=== PATIENT | male | born 1975 | race Caucasian/White ===

== ENCOUNTER 2023-05-31 06:16 | Emergency (ER) | payer OTHER ==
[~2023-05-31] VITALS: Ht 185.4 cm; Wt 102.0 kg
--- NOTE | 2023-05-31 07:01 | ED Abdominal Pain ---
General Chief Complaint: Abdominal/GI Problems Stated Complaint: CONSTIPATED X 7 DAYS Source of Information: Patient Exam Limitations: No Limitations (FRAN ROSSI) History of Present Illness Date Seen by Provider: May 31, 2023 Time Seen by Provider: 06:56 Initial Comments Anant presents with a 7 day history of constipation. He believes his constipation spells are due to all the medications that he is on for his blood pressure. He says that he has had two episodes of constipation of this time frame before and had to receive an enema for him to pass stool. He has tried M iralax to help with constipation but has only caused diarrhea and has not helped his discomfort at this time. He says most of his discomfort is located on his left side at this time and does not radiate. He rates the discomfort as a 5/10. He said that he feels that he is very dehyrated as well. He denies any nausea or vomiting, fever, night sweats, chills. Timing/Duration: 1 Week Severity/Quality: Mild Location: LUQ, LLQ Radiation: No Radiation Activities at Onset: None (FRAN ROSSI) Allergies and Home Medications Allergies Coded Allergies: No Known Drug Allergies (Unverified , 05/31/23) Patient Home Medication List Home Medication List Reviewed: Yes (MATTHEW THOMAS MD) Review of Systems Review of Systems Constitutional: No chills, No diaphoresis, No weakness EENTM: No Symptoms Reported Respiratory: Denies Cough, Denies Shortness of Air Cardiovascular: Denies Chest Pain, Denies Lightheadedness, Denies Palpitations Gastrointestinal: Abdominal Pain, Constipated, Diarrhea; Denies Vomiting Musculoskeletal: no symptoms reported (FRAN ROSSI) Past Nnlgalb-Ofxawa-Bljahn Hx Patient Social History Tobacco Use?: No Use of E-Cig and/or Vaping dev: No Substance use?: Yes Substance type: Marijuana Alcohol Use?: Yes Alcohol Frequency: Once in a while (FRAN ROSSI) Past Medical History Surgeries: Yes Neurological, Renal Respiratory: No Cardiac: Yes Hypertension Neurological: Yes Stroke Genitourinary: Yes Renal Failure Cancer: Yes Kidney (FRAN ROSSI) Physical Exam Vital Signs Vital Signs - First Documented 05/31/23 05/31/23 06:43 10:50 Temp 36.9 Pulse 89 Resp 16 B/P (MAP) 155/106 (122) Pulse Ox 98 (MATTHEW THOMAS MD) Vital Signs Capillary Refill : (FRAN ROSSI) Height/Weight/BMI Height: '" Weight: lbs. oz. kg; BMI Method: General Appearance: WD/WN, no apparent distress Respiratory: lungs clear, normal breath sounds, no respiratory distress, no accessory muscle use Cardiovascular: regular rate, rhythm, no gallop, no murmur Gastrointestinal: non tender, soft, abnormal bowel sounds (hyperactive bowel sounds to left sided abdomen) Extremities: no calf tenderness Back: no CVA tenderness Neurologic/Psychiatric: alert, normal mood/affect, oriented x 3 (FRAN ROSSI) Progress/Results/Core Measures Results/Orders Lab Results Laboratory Tests Test 05/31/23 09:02 Range/Units Sodium Level 136 135-145 MMOL/L Potassium Level 4.2 3.6-5.0 MMOL/L Chloride Level 106 98-107 MMOL/L Carbon Dioxide Level 20 L 21-32 MMOL/L Anion Gap 10 5-14 MMOL/L Blood Urea Nitrogen 36 H 7-18 MG/DL Creatinine 2.14 H 0.60-1.30 MG/DL Estimat Glomerular Filtration Rate 37 BUN/Creatinine Ratio 17 Glucose Level 103 70-105 MG/DL Calcium Level 8.7 8.5-10.1 MG/DL Magnesium Level 2.1 1.6-2.4 MG/DL (MATTHEW THOMAS MD) My Orders Orders - MATTHEW THOMAS MD Abdomen, Flat & Upright/Decub (05/31/23 08:00) Ed Iv/Invasive Line Start (05/31/23 08:00) Lactated Ringers 1,000 Ml (Lactated Ring (05/31/23 08:00) Basic Metabolic Panel (05/31/23 08:00) Magnesium (05/31/23 08:00) (MATTHEW THOMAS MD) Medications Given in ED (MATTHEW THOMAS MD) Vital Signs/I&O 05/31/23 05/31/23 06:43 10:50 Temp 36.9 36.9 Pulse 89 90 Resp 16 16 B/P (MAP) 155/106 (122) 160/99 Pulse Ox 98 (MATTHEW THOMAS MD) Progress Progress Note : Time: 07:02 Progress Note Patient is currently in 5/10 discomfort at this time. He says he has had a history of 7 days of constipation. He has had two prior episodes like this before but both were back home in [place]. He is currently down here for a hunting trip at this time. He says that he had enema's prior that helped him pass stool. He is currently having some small amounts of diarrhea after taking Miralax. He has mild tenderness to the left side of his abdomen as well as hyperactive bowel sounds to left side of abdomen. Cardio exam has normal rate and rhythm with no murmur, lungs are clear. No other pains or complaints at this time. Plan is to give (FRAN ROSSI) Progress Note : Progress Note Patient was interviewed and examined by me along with PA student. He was found to have a relatively benign abdomen on exam with no distention or significant tenderness. He reports feeling very constipated and not passing significant stool for many days despite taking MiraLAX. He normally takes MiraLAX daily but took additional MiraLAX to help with this problem. He has had some small quantity of liquidy stool but that did not resolve his feeling of constipation. He takes numerous medications that can cause bowel motility problems. His medication list was reviewed. KUB and upright x-ray was obtained to evaluate stool burden. Based on my interpretation of this x-ray, there appeared to be some significant liquidy stool in the proximal bowel and no significant solid stool accumulation in the distal colon. For this reason I recommended adding some stimulant laxatives rather than more MiraLAX or an enema. Patient was agr eeable to this plan. Basic labs were checked to evaluate for hydration status and electrolytes as patient felt dehydrated. Electrolytes were unremarkable including sodium, potassium, and magnesium. BUN was 36 and creatinine was 2.14. Patient reports this is his baseline. See discharge instructions for further discussion. The radiologist report was reviewed as below. (MATTHEW THOMAS MD) Diagnostic Imaging Diagonstic Imaging: Xray Plain Films/CT/US/NM/MRI: abdomen, pelvis Comments NAME: ANANT ROBLES MED REC#: [id number] PT STATUS: DEP ER : 1975 PHYSICIAN: MATTHEW THOMAS MD ADMIT DATE: 05/31/23/ER Signed Date of Exam:05/31/23 ABDOMEN, FLAT & UPRIGHT/DECUB INDICATION: Abdominal pain. 3 views were obtained. FINDINGS: The lung bases are clear. The bowel gas pattern is nonspecific. There is no free air. There are no abnormal abdominal calcifications. IMPRESSION: Nonspecific bowel gas pattern. Dictated by: Dictated on workstation # [id number] Dict: 05/31/23 0817 Trans: 05/31/23 1226 [facility] [place] [id number] Interpreted by: MARIANN AGUIAR MD Electronically signed by: MARIANN AGUIAR MD 05/31/23 1226 (MATTHEW THOMAS MD) Departure Impression Primary Impression: Constipation Qualified Codes: K59.00 - Constipation, unspecified Disposition: HOME, SELF-CARE Condition: Stable Departure-Patient Inst. Decision time for Depature: 10:40 (MATTHEW THOMAS MD) Referrals: NO,LOCAL PHYSICIAN (PCP/Family) Primary Care Physician Patient Instructions: Constipation in adults Add. Discharge Instructions: You do not appear to have a significant amount of solid stool in your colon or rectum. There is watery stool noted higher up in your intestines on the x-rays. A stimulant laxative such as Dulcolax tablets or suppository (products with bisacodyl) may be helpful in stimulating your bowels to evacuate remaining stool. Alternatively, you may use the magnesium citrate as directed per package instructions. Usually 1 dose is sufficient to stimulate the bowels. If clearing your bowels with these laxatives does not resolve your problem, please follow-up for further evaluation. Continue to drink plenty of clear liquids to stay well-hydrated and support good bowel movements. Return to care if you have worsening symptoms despite following these instructions. All discharge instructions reviewed with patient and/or family. Voiced understanding. FRAN ROSSI May 31, 2023 07:01 MATTHEW THOMAS MD May 31, 2023 10:42
[2023-05-31] MEDS ORDERED: LACTATED RINGERS 1,000 ML 1,000 ML IV ONE (08:00)
--- NOTE | 2023-05-31 08:20 | Diagnostic Imaging Report ---
INDICATION: Abdominal pain. 3 views were obtained. FINDINGS: The lung bases are clear. The bowel gas pattern is nonspecific. There is no free air. There are no abnormal abdominal calcifications. IMPRESSION: Nonspecific bowel gas pattern. Dictated by: Dictated on workstation # [id number]
[2023-05-31 09:23] LABS: POTASSIUM 4.2 MMOL/L (3.6-5.0)
[2023-05-31 09:25] LABS: CALCIUM 8.7 MG/DL (8.5-10.1)
[2023-05-31 09:29] LABS: CREATININE SERUM 2.14 MG/DL (0.60-1.30)
[2023-05-31 09:31] LABS: MAGNESIUM 2.1 MG/DL (1.6-2.4)
[2023-05-31 10:50] VITALS: BP 160/99
== END 2023-05-31 10:50 | disposition home or self-care (01) ==
LOC: ER 06:22
DX: K59.00 Constipation, unspecified (principal); I10 Essential (primary) hypertension; Z79.899 Other long term (current) drug therapy
CPT/HCPCS: 36415; 74019; 80048; 83735